=== PATIENT | male | born 1960 | race Caucasian/White ===

== ENCOUNTER 2023-10-14 07:44 | Day surgery (SDC) | payer MEDICARE, BC ==
[2023-10-08 15:52] LABS: BASOPHILS # (AUTO) 0.1 X10'3 (0-0.2); BASOPHILS % (AUTO) 0.7 % (0-1); EOSINOPHILS # (AUTO) 0.4 X10'3 (0-0.9); EOSINOPHILS % (AUTO) 3.6 % (0-6); LYMPHOCYTES # (AUTO) 2.2 X10'3 (1.1-4.8); LYMPHOCYTES % (AUTO) 22.2 % (21-51); MEAN CORPUSCULAR HEMOGLOBIN 31.9 PG (27.0-31.0); MEAN CORPUSCULAR VOLUME 93.7 FL (78-98); MEAN PLATELET VOLUME 8.4 FL (7.4-10.4); MONOCYTES # (AUTO) 1.3 X10'3 (0-0.9); MONOCYTES % (AUTO) 12.6 % (2-12); NEUTROPHILS # (AUTO) 6.1 X10'3 (1.8-7.7); NEUTROPHILS % (AUTO) 60.9 % (42-75); PRE OP HEMATOCRIT 37.5 % (42.0-52.0); PRE OP HEMOGLOBIN 12.8 g/dL (14.0-17.9); PRE OP PLATELET COUNT 253 X10'3 (140-440); RED CELL DISTRIBUTION WIDTH 13.5 % (11.5-14.5)
[2023-10-08 16:08] LABS: ALBUMIN 3.4 G/DL (3.4-5.0); ALKALINE PHOSPHATASE 41 IU/L (46-116); BLOOD UREA NITROGEN 20 MG/DL (7-18); BUN/CREATININE RATIO 19.2 (10.0-20.0); CALCIUM 8.6 MG/DL (8.5-10.1); CHLORIDE 106 MMOL/L (99-107); CREATININE 1.04 MG/DL (0.60-1.10); PRE OP ALT 44 U/L (30-65); PRE OP ANION GAP 8 (8-16); PRE OP AST 25 U/L (10-37); PRE OP BILIRUB, TOTAL 0.3 MG/DL (0.0-1.0); PRE OP GLUCOSE 98 MG/DL (70-104); PRE OP SODIUM 142 MMOL/L (135-145); TOTAL CARBON DIOXIDE 28.1 MMOL/L (24-32); TOTAL PROTEIN 6.7 G/DL (6.4-8.2); eGFR 72 ML/MIN
[2023-10-14] VITALS (12 sets, daily range): BP systolic 121–148; BP diastolic 69–89; PULSE 62–74; RESP 9–22; TEMP 98; O2SAT 94–99
[~2023-10-14] VITALS: Ht 182.9 cm; Wt 83.9 kg
[~2023-10-14 07:44] MED LIST: ALLO300T2 PO; ASPI-107 PO; CHOL500049 PO; DOCUMENT DATE & TIME OF BETA-BLOCKER PO ONE; DOXY-1 PO; HYDR25TA5 PO; NEBI5TAB10 PO; cefazolin 2gm/D5W 100mL 100 ML IV ONE; famotidine 20mg tablet PO ONE; ringers solution, lacted 1,000 ML IV SCH
[2023-10-14] MEDS ORDERED: fentaNYL/PF 50MCG/1 ML 2ML syringe IV PRN ×2 (08:25)
[2023-10-14] MEDS ORDERED: labetalol 20mg/4ml (5mg/ml) syringe IV PRN (08:25)
[2023-10-14] MEDS ORDERED: ondansetron/PF 4mg/2ml inj IV PRN (08:25)
[2023-10-14] MEDS ORDERED: morphine 4 MG/ML inj SYRINge IV PRN (08:25)
[2023-10-14] MEDS ORDERED: hydrALAZINE 20mg/ml inj. IV PRN (08:25)
[2023-10-14] MEDS ORDERED: ringers solution, lacted 1,000 ML IV SCH (08:25)
[2023-10-14] MEDS ORDERED: morphine 2 MG/ML inj. syringe IV PRN (08:25)
[2023-10-14] MEDS ORDERED: BUPIVAcaine 2.5mg/ml inj 50ml vial (contains preservative) ONE (11:54)
[2023-10-14] MEDS ORDERED: neostigmine methylsulfate 1 MG/ML 10ml vial ONE (12:20)
[2023-10-14] MEDS ORDERED: sevoflurane 250ml liquid IH ONE (12:20)
[2023-10-14] MEDS ORDERED: dexamethasone sod phosphate 10mg/ml inj ONE (12:20)
[2023-10-14] MEDS ORDERED: fentaNYL/PF 50MCG/1 ML 2ML syringe ONE ×2 (12:29→13:04)
[2023-10-14] MEDS ORDERED: midazolam 1 mg/ML 2ml injection ONE (12:29)
[2023-10-14] MEDS ORDERED: LIDOcaine 2% (20mg/ml) 5ml vial ONE (12:36)
[2023-10-14] MEDS ORDERED: rocuronium 10mg/ml inj IV ONE ×2 (12:36→13:04)
[2023-10-14] MEDS ORDERED: glycopyrrolate 0.2mg/ml inj ONE (12:36)
[2023-10-14] MEDS ORDERED: ondansetron/PF 4mg/2ml inj ONE (12:36)
[2023-10-14] MEDS ORDERED: propofol inj 20 ML IV ONE (12:36)
[2023-10-14] MEDS ORDERED: acetaminophen 1,000mg/100ml IV 100 ML IV ONE (12:39)
[2023-10-14] MEDS ORDERED: BUPIVAcaine 0.25% w/Epi /PF 30ml vial IJ ONE (13:16)
[2023-10-14] MEDS ORDERED: hydrALAZINE 20mg/ml inj. IV ONE (13:27)
[2023-10-14] MEDS ORDERED: ketorolac trometh. 30mg/ml inj. ONE (13:59)
== END 2023-10-14 16:19 | disposition home or self-care (01) ==
LOC: PAS 07:44
PROVIDERS: ATTEND Surgery
DX: K40.20 Bilateral inguinal hernia, without obstruction or gangrene, not specified as recurrent (principal); D17.6 Benign lipomatous neoplasm of spermatic cord; I10 Essential (primary) hypertension; M10.9 Gout, unspecified; K66.0 Peritoneal adhesions (postprocedural) (postinfection); Z87.891 Personal history of nicotine dependence; Z79.899 Other long term (current) drug therapy; Z79.82 Long term (current) use of aspirin; Z72.89 Other problems related to lifestyle; Z82.3 Family history of stroke
CPT/HCPCS: 36415; 80053; 82948; 85025; 93005; A4215; A4618; C1758; C1781; J0131; J0360; J0690; J1100; J1885; J2250; J2405; J2704; J2710; J3010; J3490; J7120; S0020